=== PATIENT | female | born 1955 | race Caucasian/White ===

== ENCOUNTER 2022-08-17 06:00 | Outpatient (RCR) | payer MEDICARE, SELFPAY | END 2022-09-06 23:59 | disposition home or self-care (01) | LOC: SPT 06:00 | PROVIDERS: Visit Provider Family Medicine | DX: N39.3 Stress incontinence (female) (male) (principal) | CPT/HCPCS: 97110; 97161; 97530 ==

== ENCOUNTER 2022-09-07 06:00 | Outpatient (RCR) | payer MEDICARE, SELFPAY | END 2022-10-06 15:52 | disposition home or self-care (01) | LOC: SPT 06:00 | PROVIDERS: Visit Provider Family Medicine | DX: N39.3 Stress incontinence (female) (male) (principal) | CPT/HCPCS: 97110; 97530 ==